=== PATIENT | female | born 1950 | race African-American/Black ===

== ENCOUNTER 2016-09-10 01:20 | Emergency (ER) | payer OTHER ==
[~2016-09-10] VITALS: Ht 162.6 cm; Wt 68.9 kg
[~2016-09-10 01:20] MED LIST: AGGRENOX 25 MG-1 CER PO; AGGRENOX PO; DELTASONE1 MG PO; FLEXERIL10 MG PO; NAPROXEN500 M1 PO; PERCOCET 5/3251 TAB PO; TOPAMAX25 MG PO; Z-PACK; [UNRECOGNIZED DRUG - CODE] PO; [UNRECOGNIZED DRUG - REMARK]
[2016-09-10 01:42] VITALS: BP 144/89
--- NOTE | 2016-09-10 01:57 | NUR ---
PATIENT TO ER BED 2
--- NOTE | 2016-09-10 02:12 | NUR ---
Dr. Montilla evaluating patient at bedside.
--- NOTE | 2016-09-10 02:12 | NUR ---
PATIENT PRESENTS TO ED WITH C/O BUG BITE TO LT. ARM . PT STATES SHE WOKE UP TONIGHT TO PAIN IN LT. ARM AND NOTICED THE SWELLING . DENIES N/V/D; SKIN IS PINK/WARM/DRY; AAOX4 WITH EVEN AND STEADY GAIT; LUNGS CLEAR BL; HR EVEN AND REGULAR; PT DENIES ANY FEVER, CP, SOB, OR COUGH AT THIS TIME; PATIENT STATES PAIN OF 7/10 AT THIS TIME; VSS; PATIENT POSITIONED FOR COMFORT; HOB ELEVATED; BEDRAILS UP X2; BED DOWN. ER MD MADE AWARE OF PT STATUS.
[2016-09-10] MEDS ORDERED: IBUPROFEN 800 MG TAB PO ONE (02:30)
--- NOTE | 2016-09-10 02:57 | NUR ---
Ultrasound at bedside.
[2016-09-10 04:01] VITALS: BP 144/89
== END 2016-09-10 04:02 | disposition home or self-care (01) ==
LOC: MED 01:20
DX: S50.12XA Contusion of left forearm, initial encounter (principal); R03.0 Elevated blood-pressure reading, without diagnosis of hypertension; J45.909 Unspecified asthma, uncomplicated; Z88.0 Allergy status to penicillin; Z91.018 Allergy to other foods; Z88.1 Allergy status to other antibiotic agents; Z88.5 Allergy status to narcotic agent; Z86.73 Personal history of transient ischemic attack (TIA), and cerebral infarction without residual deficits; Z79.82 Long term (current) use of aspirin; X58.XXXA Exposure to other specified factors, initial encounter; Y93.89 Activity, other specified; Y92.89 Other specified places as the place of occurrence of the external cause; Y99.8 Other external cause status
CPT/HCPCS: 36415; 80053; 85025; 85610; 85730; 93971; 99285; Q0092

== ENCOUNTER 2017-01-03 11:50 | Emergency (ER) | payer OTHER ==
[~2017-01-03] VITALS: Ht 162.6 cm; Wt 69.1 kg
[~2017-01-03 11:50] MED LIST changes: -AGGRENOX 25 MG-1 CER PO; -AGGRENOX PO; +ASPI81CT20 PO; +CYCL-405 PO; -DELTASONE1 MG PO; -FLEXERIL10 MG PO; -NAPROXEN500 M1 PO; +OXYC1TAB PO; -PERCOCET 5/3251 TAB PO; -TOPAMAX25 MG PO; -Z-PACK; -[UNRECOGNIZED DRUG - CODE] PO; -[UNRECOGNIZED DRUG - REMARK]
[2017-01-03 11:59] VITALS: BP 158/96
--- NOTE | 2017-01-03 11:59 | NUR ---
PT AMBULATED TO BED 7.
--- NOTE | 2017-01-03 12:08 | NUR ---
Dr. Preciado evaluating patient at bedside.
--- NOTE | 2017-01-03 12:12 | NUR ---
66/F c/o severe left lower back pain radiating down left leg x2 weeks. Pt states she had x-rays done yesterday and she was called back to go see her today at 1400. Pt states the pain is too severe and needs something for pain. Pt is squatting down, crying, rubbing her lower back, worse with walking, 10/10. AOX4, ambulatory with steady gait. VSS.
[2017-01-03] MEDS ORDERED: ACETAMINOPHEN 325 MG TAB PO ONE (12:15)
[2017-01-03] MEDS ORDERED: KETOROLAC 60 MG/2 ML VIAL IM ONE (12:15)
[2017-01-03 12:55] VITALS: BP 143/78
--- NOTE | 2017-01-03 12:56 | NUR ---
Patient discharged with v/s stable. Written and verbal after care instructions given and explained. Patient verbalized understanding. Ambulatory with steady gait. All questions addressed prior to discharge. Advised to follow up with PMD.
== END 2017-01-03 12:56 | disposition home or self-care (01) ==
LOC: MED 11:50
DX: G89.29 Other chronic pain (principal); M54.5 Low back pain; J45.909 Unspecified asthma, uncomplicated; Z88.0 Allergy status to penicillin; Z88.6 Allergy status to analgesic agent; Z88.8 Allergy status to other drugs, medicaments and biological substances; Z86.73 Personal history of transient ischemic attack (TIA), and cerebral infarction without residual deficits
CPT/HCPCS: 96372; 99283; J1885

== ENCOUNTER 2018-03-16 02:57 | Inpatient (IN) | payer OTHER ==
[~2018-03-16] VITALS: Ht 162.6 cm; Wt 68.9 kg
[2018-03-16 03:05] VITALS: BP 151/85
--- NOTE | 2018-03-16 03:05 | NUR ---
PT AMBULATED TO BED 8 WITH TRIAGE NURSE.
[2018-03-16] MEDS ORDERED: VANCOMYCIN 1GM/DEXT 5% PREMIX 200 ML IV ONE (03:40)
[2018-03-16] MEDS ORDERED: fentaNYL 0.05 MG/ML VIAL IVP ONE (03:40)
[2018-03-16] MEDS ORDERED: VANCOMYCIN PER PHARMACY MC PRN ×2 (03:40→04:50)
[2018-03-16] MEDS ORDERED: ACYCLOVIR 500 MG in NACL 0.9% 100 ML IV ONE (03:40)
[2018-03-16] MEDS ORDERED: NACL 0.9% 1,000 ML IV SCH (03:59)
[2018-03-16] MEDS ORDERED: ACETAMINOPHEN 325 MG TAB PO PRN (04:00)
[2018-03-16] MEDS ORDERED: DOCUSATE SODIUM 100 MG GELCAP PO PRN (04:00)
[2018-03-16] MEDS ORDERED: ONDANSETRON 4 MG/2 ML VIAL IM/IVP PRN (04:00)
[2018-03-16] MEDS ORDERED: HYDROcodone/APAP 5/325 MG 1 TAB TAB PO PRN (04:00)
--- NOTE | 2018-03-16 04:05 | NUR ---
PT STATES SEVERE PAIN TO RIGHT SIDE OF FACE AT CONGREGATION RADIATING TO RIGHT SIDE OF HEAD. MULTIPLE BLISTERS FOUND IN A 3.5X3CM RING. PT STATES HAVING CHICKEN POX A CHILD AND UNDER CONSIDERABLE STRESS AT THIS TIME. VSS. 10 FACIAL PAIN. ER MD AWARE. CONTINUE TO MONITOR.
[2018-03-16] MEDS ORDERED: NACL 0.9% 1,000 ML IV ONE (04:10)
[2018-03-16] MEDS ORDERED: ACYCLOVIR 500 MG VIAL IV ONE (04:15)
[2018-03-16 04:27] LABS: BASOPHILS % (AUTO) 0.4 % (0.0-2.0); EOSINOPHILS # (AUTO) 0.2 K/uL (0-0.4); LYMPHOCYTES # (AUTO) 2.2 K/uL (2.5-16.5); NEUTROPHILS # (AUTO) 3.5 K/uL (1.8-7.7); WHITE BLOOD COUNT (AUTO) 6.4 K/uL (4.8-10.8)
[2018-03-16 04:31] LABS: EOSINOPHILS % (AUTO) 2.4 % (0.0-4.0); HEMATOCRIT 40.9 % (36-48); HEMOGLOBIN 13.1 g/dL (12.0-16.0); LYMPHOCYTES % (AUTO) 34.8 % (20.5-51.1); MEAN CORPUSCULAR HEMOGLOBIN 27 pg (27-31); MEAN CORPUSCULAR HGB CONC 32 g/dL (33-37); MEAN CORPUSCULAR VOLUME 85.1 fL (80-94); MONOCYTES # (AUTO) 0.5 K/uL (0.8-1.0); MONOCYTES % (AUTO) 8.4 % (1.7-9.3); PLATELET COUNT (AUTO) 229 K/uL (140-450); RED BLOOD CELL COUNT(AUTO) 4.81 MIL/uL (4.20-5.40)
[2018-03-16 04:37] LABS: ANION GAP 8.1 (8-16); CARBON DIOXIDE 26.8 mmol/L (21-32); CREATININE 1.3 mg/dL (0.6-1.3); POTASSIUM 3.9 mmol/L (3.5-5.1)
[2018-03-16 04:48] LABS: PROTHROMBIN TIME 9.3 secs (10.8-13.4)
[2018-03-16 04:49] LABS: ALBUMIN 3.4 g/dL (3.4-5.0); TOTAL BILIRUBIN 0.3 mg/dL (0.0-1.0)
[2018-03-16 05:09] LABS: FREE T4 (FREE THYROXINE) 1.1 ng/dL (0.76-1.46); MAGNESIUM 2.4 mg/dL (1.8-2.4); PHOSPHORUS 2.7 mg/dL (2.5-4.9); THYROID STIMULATING HORMONE 2.22 uIU/mL (0.34-3.74)
[2018-03-16] MEDS ORDERED: VANCOMYCIN 1,000 MG VIAL ONE (05:57)
[2018-03-16] MEDS ORDERED: VANCOMYCIN 1GM/DEXT 5% PREMIX 200 ML IV SCH (06:00)
[2018-03-16] MEDS: MORPHINE SULFATE 2 MG/ML SYR IVP PRN ×2 (06:46→20:59)
--- NOTE | 2018-03-16 07:03 | NUR ---
REPORT GIVEN AND CARE TRANSFERED TO SUSI RN ROOM 120B. TRANSFERED VIA [facility] WITH VSS.
--- NOTE | 2018-03-16 07:15 | NUR ---
ADMITTED FROM ER. RECEIVED REPORT FROM ER NURSE. PT AAOx4, VERBALLY RESPONSIVE, NO SIGNS OF DISTRESS. REQUESTS TO TRANSFER FROM BED B TO BED A DUE TO TOO MUCH SUNLIGHT. ASSISTED PT TO BED A. ABLE TO AMBULATE FROM ER BED TO [facility] BED WITH STEADY GAIT. ORIENTED PT TO ROOM. REVIEWED PLAN OF CARE. PT VERBALIZED UNDERSTANDING. SAFETY MEASURES IN PLACE. CALL LIGHT WITHIN REACH. WILL CONTINUE TO MONITOR.
[2018-03-16 08:00] VITALS: BP 143/82
--- NOTE | 2018-03-16 08:11 | NUR ---
PATIENT HAS BEEN SCREENED AND CATEGORIZED LOW NUTRITION RISK. PATIENT WILL BE SEEN WITHIN 7 DAYS OF ADMISSION. 03/23/18 OZ BHATIA MBA, RD
[2018-03-16] MEDS ORDERED: ACYCLOVIR 200 MG CAP PO SCH (09:00)
[2018-03-16] MEDS ORDERED: ASPIRIN 81 MG PO SCH (09:00)
[2018-03-16] MEDS: KETOROLAC 15 MG/ML VIAL IVP PRN ×3 (10:19→23:01)
[2018-03-16] MEDS: ASPIRIN 81 MG TAB.CHEW PO SCH (10:20)
[2018-03-16] MEDS: LACTOBACILLUS RHAMNOSUS GG 1 EACH CAP PO SCH (10:21)
--- NOTE | 2018-03-16 10:38 | NUR ---
PATIENT LYING IN BED WATCHING TV. COMPLAINS OF A HEADACHE, TORADOL GIVEN PER MD ORDERS. OTHER SCHEDULED MEDICATIONS DUE GIVEN. SAFETY MEASURES IN PLACE, CALL LIGHT WITHIN REACH. WILL CONTINUE TO MONITOR.
[2018-03-16 12:00] VITALS: BP 132/93
--- NOTE | 2018-03-16 12:30 | NUR ---
PATIENT SITTING IN BED WITH LUNCH TRAY IN FRONT, WATCHING TV. NO DISTRESS NOTED. PAIN WITHIN TOLERABLE AT THIS TIME. WILL CONTINUE TO MONITOR.
[2018-03-16] MEDS: guaiFENesin 20 MG/ML UDC PO PRN (12:36)
--- NOTE | 2018-03-16 15:00 | NUR ---
PATIENT SITTING DOWN IN BED WATCHING TV AND TALKING ON HER PHONE. NO DISTRESS NOTED. CONDITION UNCHANGED. WILL CONTINUE TO MONITOR.
[2018-03-16 16:00] VITALS: BP 127/74
--- NOTE | 2018-03-16 17:00 | NUR ---
PATIENT COMPLAINS OF PAIN AND BURNING ON RIGHT PROTESTANT BLISTERS, TORADOL GIVEN PER MD ORDERS. SAFETY MEASURES IN PLACE, CALL LIGHT WITHIN REACH. WILL CONTINUE TO MONITOR.
[2018-03-16] MEDS: ACYCLOVIR 200 MG CAP PO SCH ×2 (17:19→23:01)
--- NOTE | 2018-03-16 19:25 | NUR ---
RECEIVED REPORT FROM DAY SHIFT NURSE AT PT BEDSIDE. PT IN STABLE CONDITION. PT IS A/O X4. IV ACCESS IN R HAND 22G TKO. IV IS PATENT AND INTACT. PT ON AIRBORNE PRECAUTIONS D/T DX OF POSSIBLE SHINGLES. PT HAS BLISTERS ON R DRUZE/CHEEK, NOSE AND CHEST AREA. PT C/O OF SOME BURNING AT BLISTER SITES. BED IS LOCKED, LOW POSITION WITH SIDE RAILS UP X2. CALL LIGHT IS WITHIN REACH. BOARD UPDATED. WILL CONTINUE TO MONITOR.
--- NOTE | 2018-03-16 19:25 | NUR ---
REPORT GIVEN TO NEIGHBORHOOD COORDINATOR NURSE FOR CONTINUITY OF CARE. PT IN STABLE CONDITION.
[2018-03-16] MEDS: AMITRIPTYLINE 25 MG TAB PO SCH (20:44)
--- NOTE | 2018-03-16 20:59 | NUR ---
PT C/O PAIN. MORPHINE GIVEN. WILL CONTINUE TO MONITOR.
--- NOTE | 2018-03-16 23:01 | NUR ---
PT C/O PAIN. TORADOL ADMINISTERED. SCHEDULED MEDICATIONS GIVEN. PT TOLERATED WELL. WILL CONTINUE TO MONITOR.
[2018-03-17] VITALS: BP 101/64
--- NOTE | 2018-03-17 00:06 | NUR ---
PT VS WITHIN NORMAL LIMITS. PT HS NO C/O PAIN AT THIS TIME. NO SIGNS OR SYMPTOMS OF DISTRESS. WILL CONTINUE TO MONITOR PT.
--- NOTE | 2018-03-17 02:44 | NUR ---
PT ASLEEP IN BED NO SIGNS OF DISTRESS. WILL CONTINUE TO MONITOR.
--- NOTE | 2018-03-17 05:00 | NUR ---
NO CHANGE IN CONDITION. ALL NEEDS ARE MET AT THIS TIME. WILL CONTINUE TO MONITOR.
[2018-03-17] MEDS: KETOROLAC 15 MG/ML VIAL IVP PRN ×3 (06:41→22:32)
[2018-03-17] MEDS: ACYCLOVIR 200 MG CAP PO SCH ×3 (06:42→17:18)
--- NOTE | 2018-03-17 07:16 | NUR ---
ENDORSED PT TO DAY SHIFT NURSE FOR CONTINUITY OF CARE. PT IN STABLE CONDITION.
--- NOTE | 2018-03-17 07:17 | NUR ---
RECEIVED REPORT FROM SENIOR JAVA ENGINEER NURSE. PATIENT SITTING IN BED WATCHING TV. NO DISTRESS NOTED. PAIN WITHIN TOLERABLE AT THIS TIME. AAOX4, CALM, COOPERATIVE, SKIN COLOR APPROPRIATE TO ETHNICITY, WARM TO TOUCH. HAS RIGHT EPISCOPALIAN AND MIDDLE CHEST BLISTERS. LEFT EPISCOPALIAN CLOSED LESION, POSSIBLE SHINGLES. LUNGS CTA ON ALL LOBES. ABODMEN SOFT, NON-DISTENDED. IV SITE INTACT, PATENT, AND ON TKO. REVIEWED PLAN OF CARE WITH PATIENT. PATIENT VERBALIZED UNDERSTANDING. SAFETY MEASURES IN PLACE, CALL LIGHT WITHIN REACH. WILL CONTINUE TO MONITOR.
[2018-03-17 07:54] LABS: BASOPHILS % (AUTO) 0.5 % (0.0-2.0); EOSINOPHILS # (AUTO) 0.2 K/uL (0-0.4); EOSINOPHILS % (AUTO) 4.3 % (0.0-4.0); HEMOGLOBIN 12.3 g/dL (12.0-16.0); LYMPHOCYTES # (AUTO) 1.7 K/uL (2.5-16.5); LYMPHOCYTES % (AUTO) 38.3 % (20.5-51.1); MEAN CORPUSCULAR HEMOGLOBIN 28 pg (27-31); MEAN CORPUSCULAR HGB CONC 32 g/dL (33-37); MONOCYTES # (AUTO) 0.5 K/uL (0.8-1.0); MONOCYTES % (AUTO) 10.6 % (1.7-9.3); NEUTROPHILS # (AUTO) 2.1 K/uL (1.8-7.7); NEUTROPHILS % (AUTO) 46.3 % (42.2-75.2); PLATELET COUNT (AUTO) 204 K/uL (140-450); RED BLOOD CELL COUNT(AUTO) 4.47 MIL/uL (4.20-5.40); RED CELL DISTRIBUTION WIDTH 15.2 % (11.6-13.7); WHITE BLOOD COUNT (AUTO) 4.6 K/uL (4.8-10.8)
[2018-03-17 08:00] VITALS: BP 100/79
[2018-03-17 08:13] LABS: ANION GAP 12.9 (8-16); CARBON DIOXIDE 23.7 mmol/L (21-32); CREATININE 0.7 mg/dL (0.6-1.3); POTASSIUM 4.6 mmol/L (3.5-5.1)
[2018-03-17 08:15] LABS: MAGNESIUM 1.9 mg/dL (1.8-2.4); PHOSPHORUS 2.8 mg/dL (2.5-4.9)
[2018-03-17] MEDS ORDERED: VANCOMYCIN 1,250 MG in DEXTROSE 5% 250 ML IV SCH (09:00)
[2018-03-17] MEDS ORDERED: VANCOMYCIN 1,250 MG in NACL 0.9% 250 ML IV SCH (09:00)
[2018-03-17] MEDS: LACTOBACILLUS RHAMNOSUS GG 1 EACH CAP PO SCH (09:13)
[2018-03-17] MEDS: ASPIRIN 81 MG TAB.CHEW PO SCH (09:14)
--- NOTE | 2018-03-17 09:18 | NUR ---
PATIENT SITTING IN BED WATCHING TV. NO DISTRESS NOTED. PAIN WITHIN TOLERABLE. SCHEDULED MEDICATIONS DUE GIVEN. SAFETY MEASURES IN PLACE, CALL LIGHT WITHIN REACH. WILL CONTINUE TO MONITOR.
[2018-03-17] MEDS: guaiFENesin 20 MG/ML UDC PO PRN (10:41)
--- NOTE | 2018-03-17 10:43 | NUR ---
PATIENT LYING DOWN IN BED SLEEPING, AROUSABLE BY VOICE. NO DISTRESS NOTED. DENIES ANY PAIN AT THIS TIME. COMPLAINS OF COUGHING, ROBITUSSIN GIVEN PER MD ORDERS. SAFETY MEASURES IN PLACE, CALL LIGHT WITHIN REACH. WILL CONTINUE TO MONITOR.
[2018-03-17] MEDS: NACL 0.9% 1,000 ML IV SCH (12:17)
--- NOTE | 2018-03-17 12:19 | NUR ---
PATIENT LYING DOWN IN BED WATCHING TV. NO DISTRESS NOTED. DENIES ANY PAIN AT THIS TIME. SCHEDULED MEDICATIONS DUE GIVEN. SAFETY MEASURES IN PLACE, CALL LIGHT WITHIN REACH. WILL CONTINUE TO MONITOR.
[2018-03-17 12:26] LABS: T4 (THYROXINE) 7.7 ug/dL (4.5-12.0)
--- NOTE | 2018-03-17 14:11 | NUR ---
PATIENT COMPLAINS OF PAIN ON FACE, TORADOL GIVEN PER MD ORDERS. SAFETY MEASURES IN PLACE, CALL LIGHT WITHIN REACH. WILL CONTINUE TO MONITOR.
[2018-03-17 16:00] VITALS: BP 115/80
[2018-03-17] MEDS: MORPHINE SULFATE 2 MG/ML SYR IVP PRN (18:30)
--- NOTE | 2018-03-17 19:30 | NUR ---
RECEIVED REPORT FROM DAY SHIFT NURSE AT PT BEDSIDE. PT IN STABLE CONDITION. PT IS A/O X4. PT HAS BLISTERS R ANABAPTIST, NOSE AND UPPER CHEST. PT STATED THE PAIN IS LESS TODAY FROM YESTERDAY. IV ACCESS IN R HAND 22G WITH IVF RUNNING PER MD ORDERS. IV IS PATENT AND INTACT. BED IS LOCKED, LOWEST POSITION WITH SIDE RAILS UP X2. CALL LIGHT IS WITHIN REACH. BOARD UPDATED. WILL CONTINUE TO MONITOR PT.
--- NOTE | 2018-03-17 19:30 | NUR ---
GAVE REPORT TO FILM COLOR TESTER NURSE FOR CONTINUITY OF CARE. PATIENT IN STABLE CONDITION.
[2018-03-17] MEDS: AMITRIPTYLINE 25 MG TAB PO SCH (20:15)
--- NOTE | 2018-03-17 20:15 | NUR ---
ADMINISTERED SCHEDULED MEDICATION. PT TOLERATED WELL. ALL NEEDS ARE MET AT THIS TIME. WILL CONTINUE TO MONITOR PT.
--- NOTE | 2018-03-17 22:32 | NUR ---
PT C/O PAIN. TORADOL GIVEN. PT TOLERATED WELL. WILL CONTINUE TO MONITOR.
[2018-03-18] VITALS: BP 107/69
[2018-03-18] MEDS: ACYCLOVIR 200 MG CAP PO SCH ×3 (00:44→12:27)
--- NOTE | 2018-03-18 00:44 | NUR ---
PT VS WITHIN NORMAL LIMITS. ADMINISTERED SCHEDULED MEDICATION. PT TOLERATED WELL. WILL CONTINUE TO MONITOR.
--- NOTE | 2018-03-18 03:02 | NUR ---
PT ASLEEP IN BED. NO SIGNS OR SYMPTOMS OF DISTRESS. WILL CONTINUE TO MONITOR PT.
--- NOTE | 2018-03-18 05:14 | NUR ---
SCHEDULED MEDICATION ADMINISTERED. PT TOLERATED WELL. WILL CONTINUE TO MONITOR.
[2018-03-18] MEDS: NACL 0.9% 1,000 ML IV SCH (05:15)
--- NOTE | 2018-03-18 05:17 | NUR ---
LAB HERE TO DRAW MORNING LABS.
[2018-03-18 06:22] LABS: BASOPHILS % (AUTO) 0.4 % (0.0-2.0); EOSINOPHILS # (AUTO) 0.2 K/uL (0-0.4); EOSINOPHILS % (AUTO) 3.5 % (0.0-4.0); HEMOGLOBIN 12.1 g/dL (12.0-16.0); MEAN CORPUSCULAR HEMOGLOBIN 27 pg (27-31); MEAN CORPUSCULAR HGB CONC 32 g/dL (33-37); MEAN CORPUSCULAR VOLUME 85.5 fL (80-94); MONOCYTES # (AUTO) 0.5 K/uL (0.8-1.0); MONOCYTES % (AUTO) 9.7 % (1.7-9.3); NEUTROPHILS # (AUTO) 2.5 K/uL (1.8-7.7); NEUTROPHILS % (AUTO) 48.4 % (42.2-75.2); PLATELET COUNT (AUTO) 199 K/uL (140-450); RED BLOOD CELL COUNT(AUTO) 4.44 MIL/uL (4.20-5.40); RED CELL DISTRIBUTION WIDTH 15.2 % (11.6-13.7); WHITE BLOOD COUNT (AUTO) 5.2 K/uL (4.8-10.8)
[2018-03-18 06:38] LABS: ANION GAP 8.6 (8-16); CARBON DIOXIDE 27.1 mmol/L (21-32); CREATININE 0.7 mg/dL (0.6-1.3); POTASSIUM 4.7 mmol/L (3.5-5.1)
--- NOTE | 2018-03-18 07:05 | NUR ---
RECEIVED REPORT FROM NIGHTSHIFT NURSE AT BEDSIDE. PATIENT IS ON AIRBORNE PRECAUTIONS. PATIENT HAS BLISTERS NOTED ON FACE. PATIENT DOES NOT SHOW ANY SIGNS OF DISTRESS. NO PAIN NOTED. PATIENT ALERT AND ORIENTED X4. UPDATED BOARD IN PATIENT'S ROOM. LOWERED BED TO LOWEST SETTING. CALL LIGHT WITHIN REACH OF PATIENT. APPROPRIATE SIGNS PLACED OUTSIDE OF PATIENT'S ROOM. WILL CONTINUE TO MONITOR PATIENT.
--- NOTE | 2018-03-18 07:05 | NUR ---
REPORT GIVEN TO DAY SHIFT NURSE FOR CONTINUITY OF CARE. PT IN STABLE CONDITION.
[2018-03-18 08:00] VITALS: BP 126/82
[2018-03-18] MEDS ORDERED: ALBUTEROL SULFATE/IPRATROPIU 3 ML SOL IH PRN (08:15)
[2018-03-18] MEDS ORDERED: ALBUTEROL SULFATE/IPRATROPIU 3 ML SOL IH SCH (08:16)
--- NOTE | 2018-03-18 08:48 | NUR ---
spoke with pt explaining the procedure for abg the pt refused abg says it hurts too much kamille cole notified and also notified
[2018-03-18] MEDS: ASPIRIN 81 MG TAB.CHEW PO SCH (09:13)
[2018-03-18] MEDS: LACTOBACILLUS RHAMNOSUS GG 1 EACH CAP PO SCH (09:13)
--- NOTE | 2018-03-18 09:13 | NUR ---
PATIENT RECEIVED AM MEDS. PATIENT TOLERATED WELL.
[2018-03-18] MEDS: MORPHINE SULFATE 2 MG/ML SYR IVP PRN ×2 (10:35→17:46)
[2018-03-18] MEDS: VANCOMYCIN 1,250 MG in DEXTROSE 5% 250 ML IV SCH (10:35)
--- NOTE | 2018-03-18 11:01 | NUR ---
WOUND CARE EVALUATION NOTE: REASON FOR EVALUATION: FACIAL BLISTERS SKIN ASSESSMENT DONE WITH PRIMARY RN WITH THIS 67 Y/O MALE PT ADMITTED FROM HOME TO [facility] WITH INITIAL DX FACIAL PAIN WITH BLISTERS. PAST MEDICAL HX INCLUDES CVA, TIA AND MIGRAINE. ALL ABOVE INFORMATION OBTAINED FROM ADMISSION H&P AND PT. PT IS AAX4. LABS ARE WBC 5.2, H/H 12.1/38, GLUCOSE 90 AND ALBUMIN 3.4. PT IS AWAKE. SKIN IS WARM AND DRY, BLE NO HAIR GROWTH, NO EDEMA. DORSAL PEDAL PULSES PRESENT AND NORMAL.PT. DENIALS ANY HX OF DERMATOLOGY PROBLEMS.PLAN OF CARE DISCUSSED WITH PRIMARY RN. INTEGUMENTARY: -MULTIPLE DRYING OUT BLISTERS TO R/L TEMPORALS, NOSE, THROAT AND WITH THE LARGEST MEASUREMENT O RIGHT CHEST 3X5 CM. WOUND BEDS ARE PINK, DRY, NO ODOR, MADELIN-WOUNDS SKIN INTACT, ROUND SHAPE WOUND EDGES, NO S/S OF INFECTION AT THIS TIME. RECOMMENDATIONS: -KEEP SKIN DRY AND CLEAN AT ALL TIMES. -APPLY VERSATEL DRESSING TO MULTIPLE DRY BLISTERING AREAS AND COVER WITH DRY DRESSING Q7DAYS AND PRN IF SOILING. -PLEASE FOLLOW OUT PATIENT DERMATOLOGY UPON DISCHARGE ALL ABOVE RECOMMENDATIONS DISCUSSED WITH PRIMARY RN. WILL FOLLOW UP PT Q7-10 DAYS. PLEASE CONTACT WOUND CARE NURSE FOR ANY QUESTION AND CHANGE OF WOUND CONDITION.
[2018-03-18] MEDS: KETOROLAC 15 MG/ML VIAL IVP PRN ×2 (12:27→21:15)
[2018-03-18] MEDS: ALBUTEROL SULFATE/IPRATROPIU 3 ML SOL IH SCH ×2 (13:11→19:47)
--- NOTE | 2018-03-18 13:50 | NUR ---
PATIENT RESTING AT THIS TIME. NO DISTRESS NOTED. WILL CONTINUE TO MONITOR PATIENT.
--- NOTE | 2018-03-18 15:00 | NUR ---
PATIENT TALKING ON PHONE. NO DISTRESS NOTED. WILL CONTINUE TO MONITOR PATIENT.
[2018-03-18 16:00] VITALS: BP 117/70
[2018-03-18] MEDS: ACYCLOVIR 800 MG TAB PO SCH (17:17)
--- NOTE | 2018-03-18 19:15 | NUR ---
GAVE REPORT TO NIGHTSHIFT NURSE. PATIENT IN STABLE CONDITION.
--- NOTE | 2018-03-18 19:16 | NUR ---
RECEIVED PATIENT AWAKE LYING COMFORTABLE ON BED. CALL LIGHT WITHIN REACH. WILL CONTINUE TO MONITOR.
--- NOTE | 2018-03-18 21:00 | NUR ---
SCHEDULE GIVEN AND TOLERATED WELL. NO S/S OF DISTRESS NOTED. WILL CONTINUE TO MONITOR.
[2018-03-18] MEDS: AMITRIPTYLINE 25 MG TAB PO SCH (21:15)
[2018-03-18 22:00] VITALS: BP 122/72
[2018-03-19] MEDS: NACL 0.9% 1,000 ML IV SCH (03:25)
[2018-03-19] MEDS: ACYCLOVIR 800 MG TAB PO SCH ×3 (05:43→12:00)
[2018-03-19] MEDS: ALBUTEROL SULFATE/IPRATROPIU 3 ML SOL IH SCH ×2 (07:00→13:18)
--- NOTE | 2018-03-19 07:35 | NUR ---
RECEIVED REPORT FROM NIGHTSHIFT NURSE. PATIENT IS AWAKE IN HIGH-FOWLERS POSITION. PATIENT HAS BLISTERS ON FACE. PATIENT IS ON AIRBORNE PRECAUTIONS. NO NOTED DISTRESS. NO NOTED PAIN. PATIENT IS ALERT AND ORIENTED X3. IV NOTED ON LEFT HAND 22G RUNNING NORMAL SALINE. UPDATED BOARD IN PATIENT'S ROOM. LOWERED BED TO LOWEST SETTING. WILL CONTINUE TO MONITOR PATIENT.
--- NOTE | 2018-03-19 07:35 | NUR ---
ENDORSEMENT GIVEN TO [facility] HIFT NURSE AT BEDSIDE FOR CONTINUITY OF CARE. PATIENT IN STABLE CONDITION.
[2018-03-19] MEDS: LACTOBACILLUS RHAMNOSUS GG 1 EACH CAP PO SCH (08:34)
[2018-03-19] MEDS: ASPIRIN 81 MG TAB.CHEW PO SCH (08:34)
[2018-03-19] MEDS: VANCOMYCIN 1,250 MG in DEXTROSE 5% 250 ML IV SCH (09:00)
[2018-03-19] MEDS: KETOROLAC 15 MG/ML VIAL IVP PRN (09:29)
--- NOTE | 2018-03-19 10:20 | NUR ---
PATIENT AWAKE AT THIS TIME. NO DISTRESS NOTED. WILL CONTINUE TO MONITOR PATIENT
[2018-03-19] MEDS ORDERED: ACYC800T2 PO (11:26)
[2018-03-19] MEDS ORDERED: ELA25 PO (11:26)
[2018-03-19] MEDS ORDERED: LACT10CA PO (11:26)
[2018-03-19] MEDS ORDERED: FLO110 IH (11:57)
[2018-03-19] MEDS ORDERED: ALBU-118 IH (11:57)
[2018-03-19] MEDS ORDERED: CEPH250C16 PO (12:48)
--- NOTE | 2018-03-19 13:25 | NUR ---
PATIENT AWAKE AT THIS TIME. NO DISTRESS NOTED. ALL NEEDS MET. WILL CONTINUE TO MONITOR
--- NOTE | 2018-03-19 14:52 | NUR ---
PATIENT IS IN THE RESTROOM AT THIS TIME. PATIENT DOES NOT NEED ASSISTANCE AT THIS TIME. WILL CONTINUE TO MONITOR PATIENT.
[2018-03-19 16:00] VITALS: BP 115/77
--- NOTE | 2018-03-19 16:48 | NUR ---
PATIENT SIGNED ALL DISCHARGE INSTRUCTIONS. PATIENT AWARE OF PRESCRIPTIONS. TOOK PICTURES OF PATIENTS BLISTERS. COVERED THEM WITH VERSATEL AND BANDAIDS. SUPPLIED PATIENT WITH SOME VERSATEL AND DRESSING TO TAKE HOME. REMOVED IV FROM PATIENT WITH CATHETER STILL INTACT. PATIENT GATHERED ALL BELONGINGS. PATIENT LEFT THE UNIT IN STABLE CONDITION VIA WHEELCHAIR.
[2018-03-19 17:12] VITALS: BP 117/61
== END 2018-03-19 16:48 | disposition home or self-care (01) | DRG 595 ==
LOC: MED 02:57 → MTU 03:59
PROVIDERS: ADMIT Family Medicine; ATTEND Family Medicine
DX: B02.9 Zoster without complications (principal); N17.0 Acute kidney failure with tubular necrosis; N39.0 Urinary tract infection, site not specified; E87.1 Hypo-osmolality and hyponatremia; J45.901 Unspecified asthma with (acute) exacerbation; L01.03 Bullous impetigo; I10 Essential (primary) hypertension; E78.5 Hyperlipidemia, unspecified; F41.9 Anxiety disorder, unspecified; F32.9 Major depressive disorder, single episode, unspecified; F43.22 Adjustment disorder with anxiety; G43.909 Migraine, unspecified, not intractable, without status migrainosus; G89.29 Other chronic pain; I34.1 Nonrheumatic mitral (valve) prolapse; J44.9 Chronic obstructive pulmonary disease, unspecified; K59.00 Constipation, unspecified; E87.8 Other disorders of electrolyte and fluid balance, not elsewhere classified; E83.52 Hypercalcemia; Z86.73 Personal history of transient ischemic attack (TIA), and cerebral infarction without residual deficits; Z88.5 Allergy status to narcotic agent; Z88.0 Allergy status to penicillin; Z88.8 Allergy status to other drugs, medicaments and biological substances; Z88.1 Allergy status to other antibiotic agents; Z91.041 Radiographic dye allergy status; Z90.722 Acquired absence of ovaries, bilateral
CPT/HCPCS: 36415; 70450; 71045; 74018; 80048; 80053; 80202; 82150; 83036; 83605; 83690; 83735; 83880; 84100; 84436; 84439; 84443; 84479; 84484; 85025; 85610; 85730; 87040; 87070; 87081; 93005; 94640; 96365; 96375; 99285; J0133; J0696; J1885; J2270; J3010; J3370; J7030; J7060; J7620; Q0092

== ENCOUNTER 2018-08-02 14:32 | Emergency (ER) | payer OTHER ==
[~2018-08-02] VITALS: Ht 162.6 cm; Wt 65.8 kg
[~2018-08-02 14:32] MED LIST changes: +ACYC800T2 PO; +ALBU-118 IH; +CEPH250C16 PO; +ELA25 PO; +FLO110 IH; +LACT10CA PO; -OXYC1TAB PO
[2018-08-02 14:40] VITALS: BP 131/84
[2018-08-02 16:24] VITALS: BP 147/86
== END 2018-08-02 16:24 | disposition home or self-care (01) ==
LOC: MED 14:32
DX: L03.211 Cellulitis of face (principal); J02.9 Acute pharyngitis, unspecified; H92.03 Otalgia, bilateral; J44.9 Chronic obstructive pulmonary disease, unspecified; Z86.73 Personal history of transient ischemic attack (TIA), and cerebral infarction without residual deficits; Z90.710 Acquired absence of both cervix and uterus; Z90.49 Acquired absence of other specified parts of digestive tract; Z88.0 Allergy status to penicillin; Z88.1 Allergy status to other antibiotic agents; Z88.5 Allergy status to narcotic agent; Z88.8 Allergy status to other drugs, medicaments and biological substances; Z79.899 Other long term (current) drug therapy
CPT/HCPCS: 99283

== ENCOUNTER 2019-01-23 11:06 | Emergency (ER) | payer OTHER ==
[~2019-01-23] VITALS: Ht 162.6 cm; Wt 67.8 kg
[~2019-01-23 11:06] MED LIST changes: +ACYC-278 PO; -ACYC800T2 PO
[2019-01-23 11:14] VITALS: BP 155/88
--- NOTE | 2019-01-23 11:15 | NUR ---
Patient ambulated to bed 2. RN evaluating patient at bedside.
--- NOTE | 2019-01-23 11:20 | NUR ---
PT C/O BILATERAL EAR AND THROAT DISCOMFORT X TODAY ; NOTED "BUMPS" TO BACK OF THROAT. FULL CLEAR SPEECH, NO DROOLING , OR MUFFLE VOICE NOTED. DENIES N/V/D; SKIN IS PINK/WARM/DRY; AAOX4 WITH EVEN AND STEADY GAIT; LUNGS CLEAR BL; HR EVEN AND REGULAR; PT DENIES ANY FEVER, CP, SOB, OR COUGH AT THIS TIME; PATIENT STATES PAIN OF 5/10 AT THIS TIME; VSS; PATIENT POSITIONED FOR COMFORT; HOB ELEVATED; BEDRAILS UP X1; BED DOWN. ER MD MADE AWARE OF PT STATUS.
[2019-01-23] MEDS ORDERED: DEXAMETHASONE 10 MG/ML VIAL IM ONE (11:30)
[2019-01-23] MEDS ORDERED: CLINDAMYCIN 600 MG/4 ML VIAL IM ONE (11:30)
[2019-01-23] MEDS ORDERED: hydrOXYzine HCL 25 MG TAB PO ONE (11:30)
[2019-01-23 12:17] VITALS: BP 167/93
--- NOTE | 2019-01-23 12:17 | NUR ---
Patient discharged with v/s stable. Written and verbal after care instructions given and explained. Patient alert, oriented and verbalized understanding of instructions. Ambulatory with steady gait. All questions addressed prior to discharge. ID band removed. Patient advised to follow up with PMD. Rx of Flonase, Clindamycin, and Atarax given. Patient educated on indication of medication including possible reaction and side effects. Opportunity to ask questions provided and answered.
== END 2019-01-23 12:17 | disposition home or self-care (01) ==
LOC: MED 11:06
DX: R09.82 Postnasal drip (principal); K12.1 Other forms of stomatitis; J44.9 Chronic obstructive pulmonary disease, unspecified; Z86.79 Personal history of other diseases of the circulatory system; Z86.73 Personal history of transient ischemic attack (TIA), and cerebral infarction without residual deficits; Z79.899 Other long term (current) drug therapy; Z88.0 Allergy status to penicillin; Z88.1 Allergy status to other antibiotic agents; Z88.5 Allergy status to narcotic agent; Z88.8 Allergy status to other drugs, medicaments and biological substances
CPT/HCPCS: 96372; 99283; J1100; J3490

== ENCOUNTER 2019-08-29 07:38 | Emergency (ER) | payer OTHER ==
[~2019-08-29] VITALS: Ht 162.6 cm; Wt 68.0 kg
[2019-08-29 07:47] VITALS: BP 153/81
--- NOTE | 2019-08-29 07:50 | NUR ---
PATIENT AMBULATED WITH STEADY GAIT TO BED 11.
--- NOTE | 2019-08-29 08:27 | NUR ---
PT RETURNED FROM X-RAY BY WHEELCHAIR.
--- NOTE | 2019-08-29 08:30 | NUR ---
69 Y/O F C/O SINUS PRESSURE, CONGESTION X 2 DAYS. PT STATES SHE WENT TO [facility] 1 1/2 MONTHS AGO FOR SAME SX, WAS GIVEN ANTIBIOTICS, HOWEVER STILL HAS SYMPTOMS. PT DENIES N/V/F. LUNG SOUNDS CLEAR THROUGHOUT. PT SINUSES PAINFUL TO TOUCH BILATERALY. PT POSITIONED FOR COMFORT, SIDE RAIL X1 IN PLACE.
[2019-08-29] MEDS ORDERED: KETOROLAC 60 MG/2 ML VIAL IM ONE (10:00)
[2019-08-29 10:19] VITALS: BP 143/78
--- NOTE | 2019-08-29 10:19 | NUR ---
NADR, PAIN 12/06
--- NOTE | 2019-08-29 10:19 | NUR ---
Patient discharged with v/s stable. Written and verbal after care instructions given and explained REGARDING SINUSITIS. Patient alert, oriented and verbalized understanding of instructions. Ambulatory with steady gait. All questions addressed prior to discharge. ID band removed. Patient advised to follow up with PMD. Rx of PROMETHAZINE, SUDAFED, MOTRIN, FLONASE, CLINDAMYCIN given. Patient educated on indication of medication including possible reaction and side effects. Opportunity to ask questions provided and answered.
== END 2019-08-29 10:19 | disposition home or self-care (01) ==
LOC: MED 07:38
DX: J32.9 Chronic sinusitis, unspecified (principal); J44.9 Chronic obstructive pulmonary disease, unspecified; Z88.0 Allergy status to penicillin; Z88.1 Allergy status to other antibiotic agents; Z88.5 Allergy status to narcotic agent; Z79.899 Other long term (current) drug therapy; Z86.73 Personal history of transient ischemic attack (TIA), and cerebral infarction without residual deficits
CPT/HCPCS: 70220; 96372; 99283; J1885; Q0092

== ENCOUNTER 2020-04-23 17:45 | Emergency (ER) | payer OTHER ==
[~2020-04-23] VITALS: Ht 157.5 cm; Wt 72.6 kg
[2020-04-23 17:51] VITALS: BP 160/86
[2020-04-23] MEDS ORDERED: KETOROLAC 60 MG/2 ML VIAL IM ONE (18:10)
[2020-04-23 18:40] VITALS: BP 160/86
== END 2020-04-23 18:40 | disposition home or self-care (01) ==
LOC: MED 17:45
DX: M54.2 Cervicalgia (principal); J44.9 Chronic obstructive pulmonary disease, unspecified; I63.9 Cerebral infarction, unspecified; I51.89 Other ill-defined heart diseases; Z88.0 Allergy status to penicillin; Z88.1 Allergy status to other antibiotic agents; Z88.6 Allergy status to analgesic agent; Z88.8 Allergy status to other drugs, medicaments and biological substances; Z90.711 Acquired absence of uterus with remaining cervical stump; Z79.899 Other long term (current) drug therapy
CPT/HCPCS: 96372; 99283; J1885

== ENCOUNTER 2022-02-19 11:13 | Emergency (ER) | payer OTHER ==
[~2022-02-19] VITALS: Ht 160 cm; Wt 73.0 kg
[~2022-02-19 11:13] MED LIST changes: +AMIT25TA39 PO; -CYCL-405 PO; +CYCL-711 PO; -ELA25 PO
[2022-02-19 11:15] VITALS: BP 141/100
--- NOTE | 2022-02-19 11:20 | NUR ---
PT AMB TO BED 7.
[2022-02-19] MEDS ORDERED: KETOROLAC 60 MG/2 ML VIAL IM ONE (11:25)
[2022-02-19] MEDS ORDERED: cefTRIAXone 1,000 MG in LIDOCAINE MPF 1% 2.1 ML IM ONE (11:25)
--- NOTE | 2022-02-19 11:25 | NUR ---
BIB SELF C/O 04/08 LEFT LOWER LEG PAIN, REDNESS, SWELLING X YESTETDAY.
[2022-02-19] MEDS ORDERED: cefTRIAXone 1,000 MG VIAL ONE (11:32)
[2022-02-19] MEDS ORDERED: LIDOCAINE MPF 1% 5 ML ONE (11:32)
--- NOTE | 2022-02-19 11:33 | NUR ---
Patient discharged with v/s stable. Written and verbal after care instructions FOR CELLULITIS given and explained. Patient alert, oriented and verbalized understanding of instructions. Ambulatory with steady gait. All questions addressed prior to discharge. ID band removed. Patient advised to follow up with PMD. Rx of KEFLEX AND NAPROXEN given. Opportunity to ask questions provided and answered.
--- NOTE | 2022-02-19 11:34 | NUR ---
Chart checked and completed. The patient's care was reviewed and supervised by Malathi Augustin RN.
[2022-02-19] MEDS ORDERED: NAPR-54 PO (12:27)
[2022-02-19] MEDS ORDERED: CEPH-588 PO (12:27)
== END 2022-02-19 11:30 | disposition home or self-care (01) ==
LOC: MED 11:13
DX: L03.116 Cellulitis of left lower limb (principal); I25.10 Atherosclerotic heart disease of native coronary artery without angina pectoris; J44.9 Chronic obstructive pulmonary disease, unspecified; Z86.73 Personal history of transient ischemic attack (TIA), and cerebral infarction without residual deficits; Z88.0 Allergy status to penicillin; Z88.1 Allergy status to other antibiotic agents; Z88.5 Allergy status to narcotic agent; Z91.040 Latex allergy status; Z79.891 Long term (current) use of opiate analgesic; Z88.8 Allergy status to other drugs, medicaments and biological substances; Z90.711 Acquired absence of uterus with remaining cervical stump; Z98.890 Other specified postprocedural states
CPT/HCPCS: 96372; 99284; J0696; J1885; J2001

== ENCOUNTER 2023-04-18 15:47 | Emergency (ER) | payer OTHER ==
[~2023-04-18] VITALS: Ht 162.6 cm; Wt 71.4 kg
[~2023-04-18 15:47] MED LIST changes: +AMIT25TA PO; -AMIT25TA39 PO; +CEPH-588 PO; +NAPR-54 PO
[2023-04-18 16:05] VITALS: BP 140/86; PULSE 97; RESP 20; TEMP 98; O2SAT 100
[2023-04-18] MEDS ORDERED: DEXAMETHASONE 10 MG/ML VIAL IM ONE (17:10)
[2023-04-18] MEDS ORDERED: FAMOTIDINE 20 MG TAB PO ONE (17:10)
[2023-04-18] MEDS ORDERED: LORATADINE 10 MG TAB PO ONE (17:10)
[2023-04-18] MEDS ORDERED: FAMO-90 PO (17:51)
[2023-04-18] MEDS ORDERED: PRED20TA5 PO (17:51)
[2023-04-18] MEDS ORDERED: DIPH25TA39 PO (17:51)
[2023-04-18 17:55] VITALS: BP 127/79; PULSE 70; RESP 17; O2SAT 98
== END 2023-04-18 17:55 | disposition home or self-care (01) ==
LOC: MED 15:47
DX: R21 Rash and other nonspecific skin eruption (principal); L50.9 Urticaria, unspecified; J44.9 Chronic obstructive pulmonary disease, unspecified; Z86.73 Personal history of transient ischemic attack (TIA), and cerebral infarction without residual deficits; Z79.899 Other long term (current) drug therapy; Z79.2 Long term (current) use of antibiotics; Z79.1 Long term (current) use of non-steroidal anti-inflammatories (NSAID); Z79.82 Long term (current) use of aspirin; Z88.0 Allergy status to penicillin; Z88.1 Allergy status to other antibiotic agents; Z88.5 Allergy status to narcotic agent; Z88.8 Allergy status to other drugs, medicaments and biological substances
CPT/HCPCS: 96372; 99283; J1100